=== PATIENT | male | born 1990 | race Caucasian/White ===

== ENCOUNTER 2022-11-15 02:11 | Emergency (ER) | payer OTHER ==
[~2022-11-15] VITALS: Ht 175.3 cm; Wt 72.6 kg
[2022-11-15 02:13] VITALS: BP 206/135
--- NOTE | 2022-11-15 02:15 | NUR ---
BIBA TO BED #9
--- NOTE | 2022-11-15 02:15 | NUR ---
RECEIVED IN BED 9 WITH C/O LLQ abdominal pain x today. Per reported, patient had LLQ abdominal pain since 1800 PM yesterday, no N/V/D. PMHx: HTN (patient did not refill medications.)
--- NOTE | 2022-11-15 02:22 | NUR ---
Dr. Vigil examining patient.
[2022-11-15 02:29] LABS: BASOPHILS # (AUTO) 0.2 K/uL (0.00-0.22); BASOPHILS % (AUTO) 1.5 % (0.0-2.0); EOSINOPHILS # (AUTO) 0.1 K/uL (0-0.4); EOSINOPHILS % (AUTO) 1.1 % (0.0-4.0); HEMATOCRIT 45.7 % (36-52); HEMOGLOBIN 15.5 g/dL (12.0-18.0); LYMPHOCYTES # (AUTO) 3.1 K/uL (2.0-11.5); LYMPHOCYTES % (AUTO) 30.9 % (20.5-51.1); MEAN CORPUSCULAR HEMOGLOBIN 30 pg (27-31); MEAN CORPUSCULAR HGB CONC 34 g/dL (33-37); MEAN CORPUSCULAR VOLUME 87.7 fL (80-94); MONOCYTES # (AUTO) 0.8 K/uL (0.8-1.0); MONOCYTES % (AUTO) 8.2 % (1.7-9.3); NEUTROPHILS # (AUTO) 5.9 K/uL (1.8-7.7); NEUTROPHILS % (AUTO) 58.3 % (42.2-75.2); PLATELET COUNT (AUTO) 369 K/uL (140-450); RED BLOOD CELL COUNT(AUTO) 5.21 MIL/uL (4.20-6.10); RED CELL DISTRIBUTION WIDTH 13.4 % (11.6-13.7); WHITE BLOOD COUNT (AUTO) 10.2 K/uL (4.8-10.8)
[2022-11-15 02:45] LABS: ALBUMIN 4.2 g/dL (3.4-5.0); ANION GAP 8.3 (8-16); CARBON DIOXIDE 31.5 mmol/L (21-32); CREATININE 0.9 mg/dL (0.6-1.3); POTASSIUM 3.8 mmol/L (3.5-5.1); TOTAL BILIRUBIN 1.5 mg/dL (0.0-1.0)
[2022-11-15 04:10] VITALS: BP 76/135
--- NOTE | 2022-11-15 04:10 | NUR ---
Patient discharged with v/s stable. Written and verbal after care instructions given and explained. Patient verbalized understanding. Ambulatory with steady gait. All questions addressed prior to discharge. Advised to follow up with PMD.
== END 2022-11-15 04:10 | disposition home or self-care (01) ==
LOC: MED 02:11
DX: R10.9 Unspecified abdominal pain (principal)
CPT/HCPCS: 36415; 80053; 83690; 85025; 99283

== ENCOUNTER 2022-12-06 06:40 | Emergency (ER) | payer OTHER ==
[~2022-12-06] VITALS: Ht 175.3 cm; Wt 77.1 kg
--- NOTE | 2022-12-06 06:57 | NUR ---
Attempted to call patient to triage no response
[2022-12-06 07:00] VITALS: BP 146/101
[2022-12-06] MEDS ORDERED: IBUP-1842 PO (07:39)
--- NOTE | 2022-12-06 07:42 | NUR ---
Patient discharged with v/s stable. Written and verbal after care instructions ABOUT BLISTERS given and explained. Patient alert, oriented and verbalized understanding of instructions. Ambulatory with steady gait. All questions addressed prior to discharge. ID band removed. Patient advised to follow up with PMD. Rx of MOTRIN given. Patient educated on indication of medication including possible reaction and side effects. Opportunity to ask questions provided and answered.
== END 2022-12-06 07:42 | disposition home or self-care (01) ==
LOC: MED 06:40
DX: S90.822A Blister (nonthermal), left foot, initial encounter (principal); S90.821A Blister (nonthermal), right foot, initial encounter; X58.XXXA Exposure to other specified factors, initial encounter; Y93.89 Activity, other specified; Y92.89 Other specified places as the place of occurrence of the external cause; Y99.8 Other external cause status
CPT/HCPCS: 99282

== ENCOUNTER 2022-12-24 20:24 | Emergency (ER) | payer OTHER ==
[~2022-12-24] VITALS: Ht 177.8 cm; Wt 72.6 kg
[~2022-12-24 20:24] MED LIST: IBUP-1842 PO
[2022-12-24 20:26] VITALS: BP 180/130
--- NOTE | 2022-12-24 20:30 | NUR ---
c/o lower back pain and rectal pain. per pt, has 'butt plug' x 1 month. denies pmhx or allergies.
[2022-12-24] MEDS ORDERED: KETOROLAC 30 MG/ML VIAL IVP ONE (20:40)
[2022-12-24] MEDS ORDERED: KETOROLAC 60 MG/2 ML VIAL IM ONE (20:40)
--- NOTE | 2022-12-24 21:00 | NUR ---
Labs collected sent to lab
[2022-12-24 21:04] LABS: BASOPHILS # (AUTO) 0.1 K/uL (0.00-0.22); BASOPHILS % (AUTO) 1.2 % (0.0-2.0); EOSINOPHILS # (AUTO) 0.2 K/uL (0-0.4); EOSINOPHILS % (AUTO) 1.8 % (0.0-4.0); HEMATOCRIT 45.5 % (36-52); HEMOGLOBIN 15.5 g/dL (12.0-18.0); LYMPHOCYTES % (AUTO) 30.4 % (20.5-51.1); MEAN CORPUSCULAR HEMOGLOBIN 30 pg (27-31); MEAN CORPUSCULAR HGB CONC 34 g/dL (33-37); MEAN CORPUSCULAR VOLUME 86.7 fL (80-94); MONOCYTES % (AUTO) 10.4 % (1.7-9.3); NEUTROPHILS # (AUTO) 5.6 K/uL (1.8-7.7); NEUTROPHILS % (AUTO) 56.2 % (42.2-75.2); PLATELET COUNT (AUTO) 365 K/uL (140-450); RED BLOOD CELL COUNT(AUTO) 5.24 MIL/uL (4.20-6.10); RED CELL DISTRIBUTION WIDTH 12.9 % (11.6-13.7)
--- NOTE | 2022-12-24 21:15 | NUR ---
Pt taken to CT
[2022-12-24 21:17] LABS: ALBUMIN 4.1 g/dL (3.4-5.0); ANION GAP 14.5 (8-16); CARBON DIOXIDE 26.9 mmol/L (21-32); CREATININE 0.8 mg/dL (0.6-1.3); POTASSIUM 3.4 mmol/L (3.5-5.1); TOTAL BILIRUBIN 2.4 mg/dL (0.0-1.0)
--- NOTE | 2022-12-24 21:30 | NUR ---
pt returned from CT
--- NOTE | 2022-12-24 21:39 | NUR ---
Swabs collected sent to lab
--- NOTE | 2022-12-24 21:52 | NUR ---
Dr. Dunn at bedside
[2022-12-24] MEDS ORDERED: IBUP-2213 PO (21:57)
--- NOTE | 2022-12-24 22:15 | NUR ---
Attempted to go through discharge paperwork with patient, pt agitated and refusing to get discharge. Pt stated to staff 'I'm going to kill you'. Security and [place] [employer] called. security at bedside at this time.
--- NOTE | 2022-12-24 22:27 | NUR ---
Patient discharged with v/s stable. Written and verbal after care instructions given and explained. Patient verbalized understanding. Ambulatory with gait steady, assisted by Violeta BERNAL. All questions addressed prior to discharge. Advised to follow up with PMD.
--- NOTE | 2022-12-24 22:27 | NUR ---
[place] [employer] at bedside and assisted with discharge for patient. Pt awake and alert, gait steady.
[2022-12-24 22:30] VITALS: BP 156/74
== END 2022-12-24 22:30 | disposition home or self-care (01) ==
LOC: MED 20:24
DX: R10.84 Generalized abdominal pain (principal); Z20.822 Contact with and (suspected) exposure to COVID-19
CPT/HCPCS: 36415; 74176; 80053; 83690; 85025; 87426; 96374; 99284; J1885